=== PATIENT | male | born 1965 | race Caucasian/White ===

== ENCOUNTER 2024-06-17 11:49 | Emergency (ER) | payer OTHER ==
[~2024-06-17] VITALS: Ht 182.9 cm; Wt 82.6 kg
[2024-06-17 13:05] VITALS: BP 119/69; PULSE 94; RESP 18; TEMP 97.2; O2SAT 96
[2024-06-17] MEDS ORDERED: CEPH500C PO (13:47)
[2024-06-17] MEDS ORDERED: NAPR-746 PO (13:47)
== END 2024-06-17 13:53 | disposition home or self-care (01) ==
LOC: ER 11:49
DX: S61.412A Laceration without foreign body of left hand, initial encounter (principal); Z79.1 Long term (current) use of non-steroidal anti-inflammatories (NSAID); W22.8XXA Striking against or struck by other objects, initial encounter; Y93.89 Activity, other specified; Y92.89 Other specified places as the place of occurrence of the external cause; Y99.8 Other external cause status
CPT/HCPCS: 12002